=== PATIENT | male | born 1990 | race Caucasian/White ===

== ENCOUNTER 2017-05-23 10:24 | Emergency (ER) | payer OTHER ==
[2017-05-23 10:40] VITALS: BP 122/75; PULSE 56; TEMP 98.1; BMI 25.8
--- NOTE | 2017-05-23 11:47 | PDOC ---
Post Exposure HPI - General Chief Complaint: Non EmpBld/Body Flud Exposure Stated Complaint: YPD, EXPOSURE Time Seen by Provider: 05/23/17 11:09 History Source: Patient - History of Present Illness Timing: this morning Exposed Location: Right: Hand(s) Assessing Significant Risk PEP: Yes Blood Past History - Past Medical History Allergies/Adverse Reactions: Allergies Allergy/AdvReac Type Severity Reaction Status Date / Time Penicillins Allergy Intermediate Rash Verified 05/23/17 10:37 Home Medications: Ambulatory Orders NK [No Known Home Medication] 05/23/17 COPD: No Other medical history: DENIES. - Suicide/Smoking/Psychosocial Hx Smoking History: Never smoked Review of Systems - Review of Systems Constitutional: No: Chills, Fever *Physical Exam - Vital Signs Last Vital Signs Temp Pulse Resp BP Pulse Ox 98.1 F 56 L 19 122/75 98 05/23/17 10:37 05/23/17 10:37 05/23/17 10:37 05/23/17 10:37 05/23/17 10:37 - Physical Exam General Appearance: Yes: Appropriately Dressed. No: Apparent Distress HEENT: positive: Normal Voice Respiratory/Chest: negative: Respiratory Distress Extremity: positive: Normal Inspection, Other (no open wound) Medical Decision Making - Medical Decision Making 05/23/17 12:33 26-year-old male, works for [employer], here after being exposed to another individual's blood while at work today. Patient states while attempting to handcuff an individual this am, he might have come in contact with what appeared to be dry blood on individual's right wrist. Patient himself has no open wounds at this time. Is hep B vaccinated. Patient well- appearing and stable with no fresh open wounds on exam. Had conversation with patient explaining that this does not constitute a true exposure as there was no commingling of individual's blood and pt's body fluids, and that there is no further intervention indicated at this time. *DC/Admit/Observation/Transfer Diagnosis at time of Disposition: Exposure to blood - Discharge Dispostion Condition at time of disposition: Good - Referrals - Patient Instructions Printed Discharge Instructions: How to Handle Body Fluid Exposure -- Non- Healthcare Worker (At Home, [facility]gi Additional Instructions: Your condition does not present a true exposure. There is no further intervention needed today - Post Discharge Activity
== END 2017-05-23 11:47 | disposition home or self-care (01) ==
LOC: JERFT 10:24
DX: Z77.21 Contact with and (suspected) exposure to potentially hazardous body fluids (principal); Y35.811A Legal intervention involving manhandling, law enforcement official injured, initial encounter; Y93.89 Activity, other specified; Y92.89 Other specified places as the place of occurrence of the external cause; Y99.0 Civilian activity done for income or pay
CPT/HCPCS: 99281-25

== ENCOUNTER 2018-07-21 14:16 | Emergency (ER) | payer OTHER | END 2018-07-21 15:05 | disposition home or self-care (01) | LOC: JER 14:16 → JERFT 15:05 ==

== ENCOUNTER 2020-09-15 17:11 | Emergency (ER) | payer OTHER ==
[2020-09-15 17:28] VITALS: BP 121/76; PULSE 64; TEMP 98.6; BMI 26.6
== END 2020-09-15 17:47 | disposition home or self-care (01) ==
LOC: FER 17:11
DX: Z77.21 Contact with and (suspected) exposure to potentially hazardous body fluids (principal)
CPT/HCPCS: 99281-25

== ENCOUNTER 2021-09-12 11:20 | Emergency (ER) | payer OTHER ==
[2021-09-12 11:38] VITALS: BP 117/68; PULSE 78; TEMP 97.8; BMI 26.6
== END 2021-09-12 11:55 | disposition home or self-care (01) ==
LOC: FER 11:20
DX: S50.812A Abrasion of left forearm, initial encounter (principal)
CPT/HCPCS: 99283-25

== ENCOUNTER 2022-10-09 12:10 | Emergency (ER) | payer OTHER ==
[2022-10-09 12:27] VITALS: BP 117/76; PULSE 80; RESP 18; TEMP 98.2; BMI 26.6
== END 2022-10-09 14:24 | disposition home or self-care (01) ==
LOC: FER 12:10
DX: M79.642 Pain in left hand (principal); M54.2 Cervicalgia; R22.32 Localized swelling, mass and lump, left upper limb; M25.511 Pain in right shoulder; W22.8XXA Striking against or struck by other objects, initial encounter; Y99.0 Civilian activity done for income or pay
CPT/HCPCS: 73030-TC-RT-FY; 73110-TC-LT-FY; 73130-TC-LT-FY; 99283-25

== ENCOUNTER 2023-04-06 19:26 | Emergency (ER) | payer OTHER ==
[2023-04-06 19:39] VITALS: BP 127/82; PULSE 62; RESP 16; BMI 26.6
[2023-04-06] MEDS ORDERED: AMOX TR/POT CLAV 875MG/125MG TABLETS (FP) ONE (19:56)
[2023-04-06] MEDS: AMOX TR/POT CLAV 875MG/125MG TABLETS (FP) PO ONE (19:57)
== END 2023-04-06 20:05 | disposition home or self-care (01) ==
LOC: FER 19:26
DX: S61.250A Open bite of right index finger without damage to nail, initial encounter (principal); W54.0XXA Bitten by dog, initial encounter
CPT/HCPCS: 99283-25

== ENCOUNTER 2023-08-28 07:27 | Emergency (ER) | payer OTHER ==
[2023-08-28 07:41] VITALS: BP 118/70; PULSE 62; RESP 16; TEMP 98.3; BMI 26.6
== END 2023-08-28 08:13 | disposition home or self-care (01) ==
LOC: FER 07:27
DX: Z77.21 Contact with and (suspected) exposure to potentially hazardous body fluids (principal)
CPT/HCPCS: 36415; 86803; 99283-25